=== PATIENT | male | born 1960 | race Caucasian/White ===

== ENCOUNTER 2024-11-28 14:05 | Outpatient (CLI) | payer BC, SELFPAY ==
--- NOTE | ~2024-11-28 | XR_ITS ---
XR sacroiliac joints min 3V Ordering provider: Gill Oliveros, JUST[place] History: . Sacroiliac inflammation . Comparison: None. FINDINGS: BONES: No acute fracture or dislocation. Degenerative changes of the spine. JOINTS: The bilateral sacroiliac joint spaces shows bilateral sacroiliitis with fusion on the right s maksim. Bilateral moderate to severe hip osteoarthritic changes. SOFT TISSUES: Unremarkable. IMPRESSION: NO ACUTE OSSEOUS ABNORMALITY. Bilateral sacroiliitis with fusion. Reviewed, dictated and finalized at location A.
== END 2024-11-28 14:06 | disposition home or self-care (01) ==
PROVIDERS: PCP Internal Medicine; Visit Provider Physician Assistant
DX: M46.1 Sacroiliitis, not elsewhere classified (principal)
CPT/HCPCS: 72202